=== PATIENT | female | born 1985 | race African-American/Black ===

== ENCOUNTER 2017-07-25 16:10 | Emergency (ER) | payer BC, OTHER ==
[~2017-07-25] VITALS: Ht 166.4 cm; Wt 82.3 kg
[2017-07-25 16:29] VITALS: BP 206/105; PULSE 110; RESP 18; TEMP 99; O2SAT 100
[2017-07-25 18:52] LABS: BILIRUBIN, URINE NEG (NEG); BLOOD, URINE SMALL (NEG); GLUCOSE,URINE NEG (NEG); KETONE, URINE NEG (NEG); NITRITE,URINE NEG (NEG); SQUAMOUS EPITHELIAL CELL URINE 1 /hpf (0-5); URINE COLOR LIGHT-YELLOW (YELLW/STRAW); URINE LEUKOCYTE ESTERASE NEG (NEG)
[2017-07-25 18:53] LABS: AUTOMATED NEUTROPHIL # 5.2 TH/MM3 (1.8-7.7); BASOPHIL % 0.2 % (0.0-2.0); EOSINOPHIL % 0.3 % (0.0-4.0); HEMOGLOBIN 12.1 GM/DL (11.6-15.3); LYMPH % 16.9 % (9.0-44.0); LYMPHOCYTE # 1.1 TH/MM3 (1.0-4.8); MEAN CELL VOLUME 88.9 FL (80.0-100.0); MEAN CORPUSCULAR HEMOGLOBIN 29.1 PG (27.0-34.0); MEAN CORPUSCULAR HGB CONC 32.7 % (32.0-36.0); MEAN PLATELET VOLUME 7.4 FL (7.0-11.0); MONO % 4.1 % (0.0-8.0); MONOCYTE # 0.3 TH/MM3 (0-0.9); NEUT % 78.5 % (16.0-70.0); PLATELET COUNT 380 TH/MM3 (150-450); RED BLOOD COUNT 4.16 MIL/MM3 (4.00-5.30); WHITE BLOOD COUNT 6.6 TH/MM3 (4.0-11.0)
[2017-07-25] MEDS ORDERED: LISI20TA3 PO (19:05)
[2017-07-25] MEDS ORDERED: FE FCAP2 (19:05)
[2017-07-25 19:06] LABS: ALBUMIN 3.9 GM/DL (3.4-5.0); ALT (GPT) 20 U/L (10-53); AST (GOT) 19 U/L (15-37); BICARBONATE 26.5 MEQ/L (21.0-32.0); BLOOD UREA NITROGEN 9 MG/DL (7-18); CHLORIDE 104 MEQ/L (98-107); CREATININE 0.85 MG/DL (0.50-1.00); GLOMERULAR FILTRATION RATE 93 ML/MIN (>89); GLUCOSE,RANDOM 101 MG/DL (74-106); MAGNESIUM 2.4 MG/DL (1.5-2.5); SODIUM (NA) 138 MEQ/L (136-145)
[2017-07-25 19:10] LABS: ALKALINE PHOSPHATASE 84 U/L (45-117); TOTAL BILIRUBIN ADULT 0.4 MG/DL (0.2-1.0); TOTAL PROTEIN 8.8 GM/DL (6.4-8.2); TROPONIN I LESS THAN 0.02 NG/ML (0.02-0.05)
--- NOTE | 2017-07-25 19:13 | PD ---
HPI Chief Complaint: Dizziness Time Seen by Provider: 19:12 Travel History International Travel<30 days: No Contact w/Intl Traveler<30days: No Traveled to known affect area: No History of Present Illness HPI 32-year-old female came to the emergency room with history of dizziness that has been going on for past 2 weeks. Patient describes his dizziness as difficulty ambulating because she feels like she keeps getting pulled to the left side. No tinnitus or hearing loss. No history of syncopal episode or falls. She has been trying to eat bananas and some protein shakes to make her feel better. Patient thinks that this could be related to low potassium since she has had low potassiums in the past. She also has history of hypertension and patient has not been taking her blood pressure medication for past 3 days since it can lower her potassium. As a result of which when she came to the emergency room at triage her blood pressure was more than 200. No history of headache. Patient has never had dizziness like this in the past. Since it is not getting better she decided to come to the emergency room to be evaluated. Patient is visiting the area and originally lives in [place]. [facility] Past Medical History Narrative Medical List of her past medical, surgical, social and family history is reviewed from the nursing note. ?: Not LMP: just had it Social History Tobacco Use: Yes Allergies-Medications (Allergen,Severity, Reaction): Coded Allergies: No Known Allergies (Verified Allergy, Unknown, 07/25/17) Comments No known drug allergies. Reported Meds & Prescriptions Reported Meds & Active Scripts Active Meclizine (Meclizine HCl) 25 Mg Tab 25 Mg PO TID PRN 5 Days Reported Integra Plus (Multi-Vit/Iron-Vit C-N12-Uyxzj Acid) 191-210-0.01-1 mg Cap Lisinopril-Hctz 20-25 Mg Tab 1 Tab PO DAILY Narrative Medication List of her home medications reviewed from the nursing note. Review of Systems Except as stated in HPI: all other systems reviewed are Neg Neurologic: Positive: Dizziness Physical Exam Narrative GENERAL: Awake, alert, no obvious distress SKIN: Focused skin assessment warm/dry. HEAD: Atraumatic. Normocephalic. EYES: Pupils equal and round. No scleral icterus. No injection or drainage. ENT: No nasal bleeding or discharge. Mucous membranes pink and moist. NECK: Trachea midline. No JVD. CARDIOVASCULAR: Regular rate and rhythm. No murmur appreciated. RESPIRATORY: No accessory muscle use. Clear to auscultation. Breath sounds equal bilaterally. GASTROINTESTINAL: Abdomen soft, non-tender, nondistended. Hepatic and splenic margins not palpable. MUSCULOSKELETAL: No obvious deformities. No clubbing. No cyanosis. No edema. NEUROLOGICAL: Awake and alert. No obvious cranial nerve deficits. Motor grossly within normal limits. Normal speech. NIH stroke score of 0 PSYCHIATRIC: Appropriate mood and affect; insight and judgment normal. Data Data Last Documented VS Vital Signs Date Time Temp Pulse Resp B/P (MAP) Pulse Ox O2 Delivery O2 Flow Rate FiO2 07/25/17 22:22 165/90 (115) 07/25/17 21:35 98 18 100 Room Air 07/25/17 16:29 99.0 Orders Orders Electrocardiogram (07/25/17 16:32) Ed Urine Pregnancytest Poc (07/25/17 16:32) Complete Blood Count With Diff (07/25/17 16:32) Comprehensive Metabolic Panel (07/25/17 16:32) Magnesium (Mg) (07/25/17 16:32) Ckmb (Isoenzyme) Profile (07/25/17 16:32) Troponin I (07/25/17 16:32) Urinalysis - C+S If Indicated (07/25/17 16:32) CKMB (07/25/17 18:02) CKMB% (07/25/17 18:02) Ct Brain W/O Iv Contrast(Rout) (07/25/17 ) Mra Brain W/O Contrast (Cow) (07/25/17 ) Mri Brain W/O Contrast (07/25/17 ) Meclizine (Antivert) (07/25/17 20:30) Ed Discharge Order (07/25/17 22:14) Labs Laboratory Tests Test 07/25/17 18:02 07/25/17 18:10 White Blood Count 6.6 TH/MM3 Red Blood Count 4.16 MIL/MM3 Hemoglobin 12.1 GM/DL Hematocrit 37.0 % Mean Corpuscular Volume 88.9 FL Mean Corpuscular Hemoglobin 29.1 PG Mean Corpuscular Hemoglobin Concent 32.7 % Red Cell Distribution Width 14.0 % Platelet Count 380 TH/MM3 Mean Platelet Volume 7.4 FL Neutrophils (%) (Auto) 78.5 % Lymphocytes (%) (Auto) 16.9 % Monocytes (%) (Auto) 4.1 % Eosinophils (%) (Auto) 0.3 % Basophils (%) (Auto) 0.2 % Neutrophils # (Auto) 5.2 TH/MM3 Lymphocytes # (Auto) 1.1 TH/MM3 Monocytes # (Auto) 0.3 TH/MM3 Eosinophils # (Auto) 0.0 TH/MM3 Basophils # (Auto) 0.0 TH/MM3 CBC Comment DIFF FINAL Differential Comment Blood Urea Nitrogen 9 MG/DL Creatinine 0.85 MG/DL Random Glucose 101 MG/DL Total Protein 8.8 GM/DL Albumin 3.9 GM/DL Calcium Level 9.0 MG/DL Magnesium Level 2.4 MG/DL Alkaline Phosphatase 84 U/L Aspartate Amino Transf (AST/SGOT) 19 U/L Alanine Aminotransferase (ALT/SGPT) 20 U/L Total Bilirubin 0.4 MG/DL Sodium Level 138 MEQ/L Potassium Level 3.7 MEQ/L Chloride Level 104 MEQ/L Carbon Dioxide Level 26.5 MEQ/L Anion Gap 8 MEQ/L Estimat Glomerular Filtration Rate 93 ML/MIN Total Creatine Kinase 184 U/L Creatine Kinase MB 0.6 NG/ML Troponin I LESS THAN 0.02 NG/ML Urine Color LIGHT-YELLOW Urine Turbidity CLEAR Urine pH 8.0 Urine Specific Oil Trough 1.008 Urine Protein NEG mg/dL Urine Glucose (UA) NEG mg/dL Urine Ketones NEG mg/dL Urine Occult Blood SMALL Urine Nitrite NEG Urine Bilirubin NEG Urine Urobilinogen LESS THAN 2.0 MG/DL Urine Leukocyte Esterase NEG Urine RBC 11 /hpf Urine WBC LESS THAN 1 /hpf Urine Squamous Epithelial Cells 1 /hpf Microscopic Urinalysis Comment CULT NOT INDICATED MDM Medical Decision Making Medical Screen Exam Complete: Yes Emergency Medical Condition: Yes Medical Record Reviewed: Yes Differential Diagnosis CVA, intracranial tumor, BPV Narrative Course 8:32 PM blood test results are back and within acceptable limits. Have ordered a CT scan of her head and MRI and MRA. If these are negative patient will be discharged home on meclizine. I have given her dose of meclizine here. 8:[address] scan is negative. Awaiting for the MRI to be done and resulted. Procedures EKG Prior to Arrival: No Diagnosis Primary Impression: Vertigo Referrals: Primary Care Physician Additional Instructions: Please return to the ER if condition worsens any other new concerns. Otherwise follow-up with your primary care. He should not be driving until he get a clearance from your primary care. Med/Other Pt SpecificInfo: Prescription(s) given Scripts Meclizine (Meclizine) 25 Mg Tab 25 MG PO TID Y for VERTIGO for 5 Days, TAB 0 Refills Prov: Divya Chowdhury MD 07/25/17 Disposition: 01 DISCHARGE HOME Condition: Stable Divya Chowdhury MD Jul 25, 2017 19:13
[2017-07-25] MEDS ORDERED: MECLIZINE HCL 25 MG TAB PO ONE (20:30)
--- NOTE | 2017-07-25 20:54 | RADRPT ---
EXAM DATE/TIME: 07/25/2017 20:24 [facility] COMPARISON: No previous studies available for comparison. INDICATIONS : Dizziness for two weeks. RADIATION DOSE: 56.35 CTDIvol (mGy) MEDICAL HISTORY : None SURGICAL HISTORY : None. ENCOUNTER: Initial ACUITY: 2 weeks PAIN SCALE: 0/10 LOCATION: Bilateral head TECHNIQUE: Multiple contiguous axial images were obtained of the head. Using automated exposure control and adj ustment of the mA and/or kV according to patient size, radiation dose was kept as low as reasonably a chievable to obtain optimal diagnostic quality images. DICOM format image data is available electro nically for review and comparison. FINDINGS: CEREBRUM: The ventricles are normal for age. No evidence of midline shift, mass lesion, hemorrhage or acute in farction. No extra-axial fluid collections are seen. POSTERIOR FOSSA: The cerebellum and brainstem are intact. The 4th ventricle is midline. The cerebellopontine angle i s unremarkable. EXTRACRANIAL: The visualized portion of the orbits is intact. SKULL: The calvaria is intact. No evidence of skull fracture. CONCLUSION: Normal examination for a patient of this age. Yuval Rogers MD on July 25, 2017 at 20:50 Board Certified Radiologist. This report was verified electronically.
[2017-07-25 21:03] VITALS: BP 170/85; PULSE 98; RESP 18; O2SAT 98
[2017-07-25 21:35] VITALS: BP 161/90; PULSE 98; RESP 18; O2SAT 100
--- NOTE | 2017-07-25 22:10 | RADRPT ---
EXAM DATE/TIME: 07/25/2017 21:02 [facility] COMPARISON: No previous studies available for comparison. INDICATIONS : CVA. MEDICAL HISTORY : Hypertension. SURGICAL HISTORY : section. ENCOUNTER: Initial ACUITY: 1 day PAIN SCORE: 10 LOCATION: Bilateral cranial TECHNIQUE: Multiplanar, multisequence MRI of the brain was performed without contrast. FINDINGS: CEREBRUM: The ventricles are normal for age. No evidence of midline shift, mass lesion, hemorrhage or acute in farction. No extraaxial fluid collections are seen. The pituitary gland and suprasellar cistern are normal in configuration. WHITE MATTER: No significant signal abnormalities are seen in the white matter. POSTERIOR FOSSA: The cerebellum and brainstem are intact. The 4th ventricle is midline. The cerebellopontine angle is unremarkable. The cerebellar tonsils are normal in position. DIFFUSION IMAGING: No focal areas of restricted diffusion are seen. No evidence of acute infarction. EXTRACRANIAL: The visualized portions of the orbits and paranasal sinuses are unremarkable. CONCLUSION: 1. No acute findings. Specifically, no evidence for recent infarct. Yuval Rogers MD on July 25, 2017 at 22:05 Board Certified Radiologist. This report was verified electronically.
--- NOTE | 2017-07-25 22:12 | RADRPT ---
EXAM DATE/TIME: 07/25/2017 21:02 [facility] COMPARISON: No previous studies available for comparison. INDICATIONS : CVA. MEDICAL HISTORY : Hypertension. SURGICAL HISTORY : section. ENCOUNTER: Initial ACUITY: 1 day PAIN SCORE: 2/10 LOCATION: Bilateral cranial Please note a normal MRA of the brain does not entirely exclude the possibility of a small aneurysm, nor the possibility of distal intracranial vessel disease. TECHNIQUE: 3D time of flight MRA was performed. Source images, multiplanar STS MIP, and 3D volume MIP reconstru ctions were reviewed. FINDINGS: There is excellent visualization of the major intracranial arteries out to the second-order branch ve ssels. There is no evidence for aneurysm, vessel truncation or stenosis, and no evidence for vascula r malformation. CONCLUSION: Normal examination for a patient of this age. Yuval Rogers MD on July 25, 2017 at 22:08 Board Certified Radiologist. This report was verified electronically.
[2017-07-25] MEDS ORDERED: MECL-62 PO (22:16)
[2017-07-25 22:22] VITALS: BP 165/90
--- NOTE | 2017-07-26 16:10 | EKG ---
Date Performed: 07/25/2017 Time Performed: 18:12:20 PTAGE: 32 years EKG: SINUS TACHYCARDIA NONSPECIFIC ST & T-WAVE ABNORMALITY ABNORMAL RHYTHM ECG PREVIOUS TRACING : 04/26/[address] changes are new since the prior tracing. DOCTOR: uLkasz Barahona Interpretating Date/Time 07/26/2017 16:08:16
== END 2017-07-25 22:31 | disposition home or self-care (01) ==
LOC: NED 16:10 → NEPD 22:31
DX: R42 Dizziness and giddiness (principal); I10 Essential (primary) hypertension; R00.0 Tachycardia, unspecified; Z72.0 Tobacco use
CPT/HCPCS: 70450; 70544; 70551; 80053; 81001; 82550; 82552; 83735; 84484; 84703; 85025; 93005